=== PATIENT | male | born 1985 | race Hispanic/Latino ===

== ENCOUNTER 2024-10-04 23:53 | Emergency (ER) | payer SELFPAY ==
[2024-10-04 23:55] VITALS: BP 170/76; PULSE 112; RESP 16; TEMP 36.9; O2SAT 97; BMI 28.0
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
== END 2024-10-05 00:36 | disposition home or self-care (01) ==
PROVIDERS: Emergency Provider Emergency Medicine
DX: Z02.89 Encounter for other administrative examinations (principal); M25.552 Pain in left hip; V89.2XXA Person injured in unspecified motor-vehicle accident, traffic, initial encounter; Y93.89 Activity, other specified; Y92.410 Unspecified street and highway as the place of occurrence of the external cause; Y99.9 Unspecified external cause status
CPT/HCPCS: 99281